=== PATIENT | female | born 1985 | race Two or more races ===

== ENCOUNTER 2016-12-01 10:40 | Emergency (ER) | payer OTHER ==
[~2016-12-01] VITALS: Ht 170.2 cm; Wt 64.4 kg
[2016-12-01 10:40] VITALS: BP 112/72
== END 2016-12-01 11:54 | disposition home or self-care (01) ==
LOC: ER 10:42
DX: S90.31XA Contusion of right foot, initial encounter (principal); S90.32XA Contusion of left foot, initial encounter; X58.XXXA Exposure to other specified factors, initial encounter; Y93.89 Activity, other specified; Y92.89 Other specified places as the place of occurrence of the external cause; Y99.8 Other external cause status
CPT/HCPCS: 73630 ×2; 99284; A4606; Z7610